=== PATIENT | male | born 1990 ===

== ENCOUNTER 2024-07-03 18:07 | Emergency (ER) | payer SELFPAY ==
--- NOTE | ~2024-07-03 | XR_ITS ---
EXAMINATION: XR chest 2V Exam Date/Time: 07/03/2024 18:17 METER ATTENDANT HISTORY: chest pain, sob; hx anxiety Comparison: None. RESULT: Lines, tubes, and devices: None. Lungs and pleura: Lordotic positioning. Slightly low volumes with crowding. Minimal streaky bibasila r atelectasis/scar, otherwise clear. Cardiomediastinal silhouette: Partially obscured, otherwise unremarkable. Other: No acute osseous or upper abdominal finding. IMPRESSION: No acute cardiopulmonary process. Reviewed, dictated and finalized at location K. R ATTENDANT
--- NOTE | 2024-07-03 18:08 | ECG_ITS ---
Test Date: 2024-07-03 18:38:33 Measurements Intervals [place] Rate: 83 P: 16 GA: 164 QRS: 24 QRSD: 97 T: 24 QT: 331 QTc: 391 Interpretive Statements SINUS RHYTHM INCOMPLETE RIGHT BUNDLE BRANCH BLOCK BASELINE ARTIFACT- III, V1, V4-V6 BORDERLINE ECG No previous ECG available for comparison Electronically Signed On 07-04-2024 10:37:48 RECOVERY ENGINEER by Nathen Oconnell D.O.
[2024-07-03 18:37] VITALS: BP 161/88; PULSE 89; RESP 16; TEMP 36.6; O2SAT 97
[2024-07-03 18:51] LABS: Basophils Absolute Auto 0.1 K/mm3 (0.0-0.1); Basophils Percent Auto 0.6 % (0.2-1.2); Eosinophils Absolute Auto 0.3 K/mm3 (0-0.3); Eosinophils Percent Auto 2.8 % (0-4.4); Hematocrit 45.4 % (42.0-52.0); Hemoglobin 15.4 g/dL (14.0-18.0); Immature Granulocyte Absolute 0.03 K/mm3 (0.00-0.031); Immature Granulocyte Percent A 0.3 % (0-0.5); Lymphocytes Absolute Auto 3.75 K/mm3 (0.9-3.2); Lymphocytes Percent Auto 39.5 % (18.3-44.2); Mean Corpuscular HGB Conc 33.9 g/dl (32-36); Mean Corpuscular Hemoglobin 29.3 pg (26-34); Mean Corpuscular Volume 86.3 fl (80-100); Mean Platelet Volume 9.2 fl (7.4-10.4); Monocytes Absolute Auto 0.6 K/mm3 (0.1-0.6); Monocytes Percent Auto 5.9 % (2.6-8.5); Neutrophils Absolute Auto 4.8 K/mm3 (1.3-6.7); Neutrophils Percent Auto 50.9 % (45.5-73.1); Platelet Count Result 320 k/mm3 (150-375); Red Blood Count 5.26 M/mm3 (4.6-6.20); Red Cell Distribution Width 12.5 % (11.5-14.5); White Blood Count 9.5 K/mm3 (4.5-10.0)
[2024-07-03 19:03] LABS: Alanine Aminotransferase 23 U/L (6-50); Albumin Level 4.5 g/dL (3.5-5.1); Alkaline Phosphatase 64 U/L (38-126); Anion Gap 11 mmol/L (4-12); Aspartate Amino Transferase 29 U/L (17-59); Bilirubin,Total 0.8 mg/dL (0.2-1.3); Blood Urea Nitrogen 21 mg/dL (9-20); Calcium 9.4 mg/dL (8.4-10.2); Carbon Dioxide 23 mmol/L (22-30); Chloride 102 mmol/L (98-107); Estimated CRCL calculation 166 ml/min; Estimated Glomerular Filt Rate > 60; Glucose 88 mg/dL (65-110); Lipase 66 U/L (23-300); Sodium 136 mmol/L (137-145)
[2024-07-03 19:14] LABS: Troponin I < 0.012 ng/mL (0.000-0.034)
[2024-07-03 19:19] LABS: Prothrombin Time 13.5 Seconds (11.1-14.7)
[2024-07-03 19:20] LABS: Partial Thromboplastin Time 29.3 Seconds (22.3-36.8)
--- NOTE | 2024-07-03 21:48 | PC.NURSE ---
Pt called multiple times to come back to room with no answer
== END 2024-07-04 02:18 | disposition left against medical advice (07) ==
LOC: ANHED 22:17
PROVIDERS: Emergency Provider Emergency Medicine
DX: R07.9 Chest pain, unspecified (principal)
CPT/HCPCS: 36415; 71046; 80053; 83690; 84484; 85025; 85610; 85730; 93005; 99199